=== PATIENT | female | born 1995 ===

== ENCOUNTER 2017-12-31 11:18 | Outpatient (CLI) | payer OTHER ==
[~2017-12-31] VITALS: Ht 167.6 cm; Wt 76.2 kg
[2018-01-01] MEDS ORDERED: ZANTAC300 MG PO (16:35)
== END 2018-01-01 17:40 | disposition home or self-care (01) ==
LOC: ER 11:18 → OBS/DEL 11:18
DX: O26.893 Other specified pregnancy related conditions, third trimester (principal); K52.89 Other specified noninfective gastroenteritis and colitis; Z34.03 Encounter for supervision of normal first pregnancy, third trimester

== ENCOUNTER 2017-12-31 13:32 | Outpatient (CLI) | payer OTHER ==
[2018-01-01] MEDS ORDERED: ZANTAC300 MG PO (16:35)
== END 2018-01-01 17:39 | disposition home or self-care (01) ==
LOC: OBS/DEL 13:32
DX: O26.893 Other specified pregnancy related conditions, third trimester (principal); K52.89 Other specified noninfective gastroenteritis and colitis; Z34.83 Encounter for supervision of other normal pregnancy, third trimester

== ENCOUNTER 2018-02-20 16:13 | Inpatient (IN) | payer OTHER ==
[~2018-02-20] VITALS: Ht 167.6 cm; Wt 176.0 kg
[~2018-02-20 16:13] MED LIST: ZANTAC300 MG PO
== END 2018-02-22 16:07 | DRG 775 ==
LOC: LDR 16:13 → OB/GYN 22:35
PROC: 10E0XZZ Delivery of Products of Conception, External Approach (ICD-10-PCS; principal; 2018-02-20)
PROC: 4A033R1 Measurement of Arterial Saturation, Peripheral, Percutaneous Approach (ICD-10-PCS; 2018-02-20)
PROC: 4A1HXCZ Monitoring of Products of Conception, Cardiac Rate, External Approach (ICD-10-PCS; 2018-02-20)
DX: O62.3 Precipitate labor (principal); Z3A.40 40 weeks gestation of pregnancy; Z37.0 Single live birth